=== PATIENT | male | born 1975 | race Hispanic/Latino ===

== ENCOUNTER 2023-05-08 05:32 | Day surgery (SDC) | payer OTHER ==
[2023-05-06 15:34] VITALS: BMI 33.0
[2023-05-08] MEDS ORDERED: Bupivacaine PF 0.5% 30 ML VIAL ONE (06:27)
[2023-05-08] MEDS ORDERED: EPINEPHrine 1 MG/ML VIAL ONE (06:27)
[2023-05-08] MEDS ORDERED: Dexamethasone 20 MG/5 ML VIAL ONE (06:43)
[2023-05-08] MEDS ORDERED: fentaNYL 50 mcg/mL 1 mL Vial ONE (06:43)
[2023-05-08] MEDS ORDERED: Ondansetron PF 4 MG/2 ML Vial ONE (06:43)
[2023-05-08] MEDS ORDERED: Lidocaine 1% PF 5 ML VIAL ONE (06:43)
[2023-05-08] MEDS ORDERED: PROPOFOL 20 ML ONE (06:43)
[2023-05-08] MEDS ORDERED: Midazolam HCl 2 mg/2 ml Vial ONE (06:43)
[2023-05-08] MEDS ORDERED: CEFAZOLIN 2 GM VIAL ONE (06:45)
[2023-05-08] MEDS ORDERED: Ketorolac Tromethamine 30 MG (1 mL) VIAL ONE (07:29)
[2023-05-08] MEDS ORDERED: HYDROcodone/Acetaminophen 5/325 mg Tablet PO PRN (07:55)
[2023-05-08] MEDS ORDERED: Ibuprofen 400 MG TAB PO PRN (13:00)
== END 2023-05-08 08:50 | disposition home or self-care (01) ==
LOC: CSHSDC 05:32
PROVIDERS: ATTEND Surgery
PROC: 0JH63WZ Insertion of Totally Implantable Vascular Access Device into Chest Subcutaneous Tissue and Fascia, Percutaneous Approach (ICD-10-PCS; principal; 2023-05-08)
DX: C24.1 Malignant neoplasm of ampulla of Vater (principal); K21.9 Gastro-esophageal reflux disease without esophagitis; Z79.899 Other long term (current) drug therapy
CPT/HCPCS: 36416; 71045; C1788; J0171; J0665; J1100; J1642; J1885; J2250; J2405; J2704; J3010

== ENCOUNTER 2023-12-12 08:12 | Outpatient (CLI) | payer OTHER | END 2023-12-12 08:13 | disposition home or self-care (01) | LOC: CSHCT 08:12 | PROVIDERS: ATTEND Internal Medicine Hematology & Oncology | DX: C24.1 Malignant neoplasm of ampulla of Vater (principal); C78.7 Secondary malignant neoplasm of liver and intrahepatic bile duct | CPT/HCPCS: 71270; 74178 ==

== ENCOUNTER 2024-12-17 10:20 | Day surgery (SDC) | payer OTHER ==
[2024-12-16 12:49] VITALS: BMI 25.7
[2024-12-17] MEDS ORDERED: PROPOFOL 20 ML ONE (11:41)
[2024-12-17] MEDS ORDERED: Lidocaine 1% PF 5 ML VIAL ONE (11:43)
[2024-12-17] MEDS ORDERED: Rocuronium Bromide 10 MG/ML (10ML VIAL) ONE (11:44)
[2024-12-17] MEDS ORDERED: Ketorolac Tromethamine 30 MG (1 mL) VIAL ONE (11:51)
[2024-12-17] MEDS ORDERED: Bupivacaine HCl 0.5%/Epinephrine 1:200,000/PF 30 ml Vial ONE (12:16)
[2024-12-17] MEDS ORDERED: CEFAZOLIN 2 GM VIAL ONE (12:36)
[2024-12-17] MEDS ORDERED: PHENYLEPHRINE-NS 100 MCG/ML 10 ML SYRINGE ONE (12:42)
[2024-12-17] MEDS ORDERED: HYDROcodone/Acetaminophen 5/325 mg Tablet ONE (14:50)
== END 2024-12-17 15:30 | disposition home or self-care (01) ==
LOC: CSHSDC 10:20
PROVIDERS: ATTEND Surgery
PROC: 0WQF0ZZ Repair Abdominal Wall, Open Approach (ICD-10-PCS; principal; 2024-12-17)
DX: K43.2 Incisional hernia without obstruction or gangrene (principal)
CPT/HCPCS: 36416; A6258; J1100; J1885; J2250; J2704